=== PATIENT | female | born 1995 | race Caucasian/White ===

== ENCOUNTER 2018-01-23 11:34 | Inpatient (IN) | payer OTHER ==
[2018-01-23 13:23] LABS: ADD MAN DIFF? NO
[2018-01-23 13:27] LABS: WHITE BLOOD COUNT 8.2 10^3/ul (4.8-10.8)
[2018-01-23 13:27] LABS: BASOPHILS % 0.5 % (0.0-2.0); EOSINOPHILS # 0.1 10^3/ul (0.0-0.5); EOSINOPHILS % 0.9 % (0.0-7.0); HEMATOCRIT 36.1 % (37.0-47.0); HEMOGLOBIN 11.8 g/dl (12.0-16.0); LYMPHOCYTES # 1.6 10^3/ul (0.8-2.9); LYMPHOCYTES % 18.9 % (15.0-51.0); MEAN CORPUSCULAR HEMOGLOBIN 27.2 pg (29.0-33.0); MEAN CORPUSCULAR HGB CONC 32.7 g/dl (32.0-37.0); MEAN CORPUSCULAR VOLUME 83.2 fl (82.0-101.0); MEAN PLATELET VOLUME 11.4 fl (7.4-10.4); MONOCYTE # 0.5 10^3/ul (0.3-0.9); MONOCYTES % 6.2 % (0.0-11.0); NEUTROPHILS % 72.8 % (39.0-77.0); PLATELET COUNT 325 10^3/UL (140-415); RED BLOOD COUNT 4.34 10^6/ul (4.20-5.40); RED CELL DISTRIBUTION WIDTH 14.7 % (11.5-14.5)
[2018-01-23 13:43] LABS: ALANINE AMINOTRANSFERASE 32 IU/L (13-69); ALBUMIN 2.9 g/dl (3.3-4.9); ALBUMIN/GLOBULIN RATIO 0.93; ALKALINE PHOSPHATASE 202 IU/L (42-121); ANION GAP 12 (8-16); ASPARTATE AMINO TRANSFERASE 23 IU/L (15-46); BILIRUBIN,INDIRECT 0.2 mg/dl (0-1.1); BILIRUBIN,TOTAL 0.2 mg/dl (0.2-1.3); BLOOD UREA NITROGEN 7 mg/dl (7-20); CARBON DIOXIDE 22 mmol/L (21-31); CHLORIDE 109 mmol/L (97-110); CREATININE 0.45 mg/dl (0.44-1.00); GLUCOSE 83 mg/dl (70-220); POTASSIUM 4.3 mmol/L (3.5-5.1); SODIUM 139 mmol/L (135-144); URIC ACID 5.3 mg/dl (3.1-7.9)
[2018-01-23 13:45] LABS: INR 0.87; PROTIME 11.9 Sec (11.9-14.9); PT RATIO 0.9
[2018-01-23 13:46] LABS: PARTIAL THROMBOPLASTIN TIME 28.3 Sec (25.0-35.0)
[2018-01-23 16:01] LABS: URINE BLOOD (Dip) POC Negative (NEGATIVE); URINE GLUCOSE (Dip) POC Negative (NEGATIVE); URINE KETONES (Dip) POC Negative (NEGATIVE); URINE LEUKOCYTE EST (Dip) POC 2+ (NEGATIVE); URINE NITRITE (Dip) POC Negative (NEGATIVE); URINE TOTAL PROTEIN POC Negative (NEGATIVE)
[2018-01-23 16:32] LABS: ADD UMIC YES; UR ASCORBIC ACID NEGATIVE (NEGATIVE); UR BACTERIA FEW /HPF (NONE SEEN); UR BILIRUBIN (Dip) NEGATIVE (NEGATIVE); UR BLOOD (Dip) NEGATIVE (NEGATIVE); UR CLARITY SLIGHTLY CLOUDY (CLEAR); UR COLOR YELLOW (YELLOW); UR GLUCOSE (Dip) NEGATIVE (NEGATIVE); UR KETONES (Dip) NEGATIVE (NEGATIVE); UR LEUKOCYTE ESTERASE (Dip) 2+ Leu/ul (NEGATIVE); UR NITRITE (Dip) NEGATIVE (NEGATIVE); UR RBC 2 /HPF (0-5); UR SPECIFIC GRAVITY (Dip) 1.017 (1.003-1.030); UR SQUAMOUS EPITHELIAL CELL FEW /HPF (FEW); UR TOTAL PROTEIN (Dip) NEGATIVE (NEGATIVE); UR UROBILINOGEN (Dip) NEGATIVE (NEGATIVE); UR WBC 28 /HPF (0-5)
[2018-01-23] MEDS ORDERED: LIDOCAINE 1% (MPF) 30 ML INJ INJ (17:00)
[2018-01-23] MEDS ORDERED: OXYTOCIN 30 UNITS/LR 500 ML IV (17:00)
[2018-01-23] MEDS ORDERED: OXYCODONE/ASPIRIN (4.88/325) TAB PO (17:00)
[2018-01-23] MEDS ORDERED: CARBOPROST 250 MCG INJ IM (17:00)
[2018-01-23] MEDS ORDERED: IBUPROFEN 600 MG TAB PO (17:00)
[2018-01-23] MEDS ORDERED: METHYLERGONOVINE 0.2 MG INJ IM (17:00)
[2018-01-23] MEDS ORDERED: BUTORPHANOL 2 MG INJ IV (17:00)
[2018-01-23] MEDS ORDERED: AMPICILLIN 2 GM/NS (PMX) 100 ML IV (17:00)
[2018-01-23] MEDS: LACTATED RINGER'S 1,000 ML IV* (20:34)
[2018-01-23] MEDS: METHYLDOPA 500 MG TAB PO (20:34)
[2018-01-23] MEDS ORDERED: AMPICILLIN 1 GM/NS (PMX) 50 ML IV (21:00)
[2018-01-23] MEDS: MISOPROSTOL 50 MCG CAPSULE VAG (22:32)
[2018-01-24] MEDS ORDERED: MISOPROSTOL 50 MCG CAPSULE VAG (01:00)
[2018-01-24] MEDS: MISOPROSTOL 50 MCG CAPSULE VAG ×5 (02:29→22:40)
[2018-01-24] MEDS: LACTATED RINGER'S 1,000 ML IV* ×3 (02:30→19:36)
[2018-01-24] MEDS: METHYLDOPA 500 MG TAB PO ×4 (07:32→21:03)
[2018-01-24 15:16] LABS: RAPID PLASMA REAGIN NONREACTIVE (NR)
[2018-01-25] MEDS: MISOPROSTOL 50 MCG CAPSULE VAG ×5 (01:00→13:00)
[2018-01-25] MEDS: LACTATED RINGER'S 1,000 ML IV* ×4 (03:30→20:02)
[2018-01-25] MEDS: METHYLDOPA 500 MG TAB PO ×2 (09:01→21:03)
[2018-01-25] MEDS: OXYTOCIN 30 UNITS/LR 500 ML IV ×3 (11:10→21:59)
[2018-01-25 13:19] LABS: ADD MAN DIFF? NO
[2018-01-25 13:22] LABS: WHITE BLOOD COUNT 9.4 10^3/ul (4.8-10.8)
[2018-01-25 13:22] LABS: BASOPHILS % 0.2 % (0.0-2.0); EOSINOPHILS % 0.3 % (0.0-7.0); HEMATOCRIT 35.9 % (37.0-47.0); HEMOGLOBIN 11.7 g/dl (12.0-16.0); LYMPHOCYTES # 1.4 10^3/ul (0.8-2.9); LYMPHOCYTES % 14.7 % (15.0-51.0); MEAN CORPUSCULAR HGB CONC 32.6 g/dl (32.0-37.0); MEAN CORPUSCULAR VOLUME 82.9 fl (82.0-101.0); MEAN PLATELET VOLUME 11.5 fl (7.4-10.4); MONOCYTE # 0.5 10^3/ul (0.3-0.9); MONOCYTES % 5.5 % (0.0-11.0); NEUTROPHIL # 7.4 10^3/ul (1.6-7.5); NEUTROPHILS % 78.9 % (39.0-77.0); PLATELET COUNT 305 10^3/UL (140-415); RED BLOOD COUNT 4.33 10^6/ul (4.20-5.40); RED CELL DISTRIBUTION WIDTH 14.8 % (11.5-14.5)
[2018-01-25 13:40] LABS: ALANINE AMINOTRANSFERASE 24 IU/L (13-69); ALBUMIN 2.8 g/dl (3.3-4.9); ALBUMIN/GLOBULIN RATIO 0.82; ALKALINE PHOSPHATASE 222 IU/L (42-121); ANION GAP 10 (8-16); ASPARTATE AMINO TRANSFERASE 23 IU/L (15-46); BILIRUBIN,INDIRECT 0.4 mg/dl (0-1.1); BILIRUBIN,TOTAL 0.4 mg/dl (0.2-1.3); BLOOD UREA NITROGEN 8 mg/dl (7-20); CALCIUM 9.1 mg/dl (8.4-10.2); CARBON DIOXIDE 22 mmol/L (21-31); CHLORIDE 109 mmol/L (97-110); CREATININE 0.47 mg/dl (0.44-1.00); GLUCOSE 85 mg/dl (70-220); POTASSIUM 3.9 mmol/L (3.5-5.1); SODIUM 137 mmol/L (135-144); TOTAL PROTEIN 6.2 g/dl (6.1-8.1); URIC ACID 6.2 mg/dl (3.1-7.9)
[2018-01-25 13:41] LABS: INR 0.86; PARTIAL THROMBOPLASTIN TIME 30.9 Sec (23.0-35.0); PROTIME 11.8 Sec (11.9-14.9); PT RATIO 0.9
[2018-01-25] MEDS ORDERED: ONDANSETRON 4 MG INJ IV ×2 (14:30→23:00)
[2018-01-25] MEDS ORDERED: NALOXONE (0.4 MG/ML) INJ IV (14:30)
[2018-01-25] MEDS ORDERED: KETOROLAC 30 MG INJ IV (14:30)
[2018-01-25] MEDS ORDERED: DIPHENHYDRAMINE 50 MG INJ IV ×2 (14:30→23:00)
[2018-01-25] MEDS ORDERED: HYDROmorphONE 0.5 MG/0.5 ML SYG IV ×2 (14:30)
[2018-01-25 15:11] LABS: URINE BLOOD (Dip) POC Negative (NEGATIVE); URINE GLUCOSE (Dip) POC Negative (NEGATIVE); URINE KETONES (Dip) POC 1+ (NEGATIVE); URINE LEUKOCYTE EST (Dip) POC Negative (NEGATIVE); URINE NITRITE (Dip) POC Negative (NEGATIVE); URINE TOTAL PROTEIN POC 1+ (NEGATIVE)
[2018-01-25 15:11] LABS: URINE PH (Dip) POC 6.5 (5.0-8.5)
[2018-01-25 15:44] LABS: ADD UMIC NO; UR ASCORBIC ACID NEGATIVE (NEGATIVE); UR BILIRUBIN (Dip) NEGATIVE (NEGATIVE); UR BLOOD (Dip) NEGATIVE (NEGATIVE); UR CLARITY CLEAR (CLEAR); UR COLOR AMBER (YELLOW); UR GLUCOSE (Dip) NEGATIVE (NEGATIVE); UR KETONES (Dip) TRACE mg/dL (NEGATIVE); UR LEUKOCYTE ESTERASE (Dip) NEGATIVE Leu/ul (NEGATIVE); UR NITRITE (Dip) NEGATIVE (NEGATIVE); UR SPECIFIC GRAVITY (Dip) 1.023 (1.003-1.030); UR TOTAL PROTEIN (Dip) NEGATIVE (NEGATIVE); UR UROBILINOGEN (Dip) 2+ mg/dL (NEGATIVE)
[2018-01-25] MEDS: FENTAnyl 2MCG/ML-ROPIV 0.2% 100 ML BAG EPI (21:09)
[2018-01-25] MEDS: MISOPROSTOL 200 MCG TAB PR ×2 (21:39→22:14)
[2018-01-25] MEDS: DEXTROSE 5%-LR 1,000 ML IV (22:51)
[2018-01-25] MEDS ORDERED: MISOPROSTOL 200 MCG TAB PR (23:00)
[2018-01-25] MEDS ORDERED: SENNA/DOCUSATE NA (8.6MG/50MG) TAB PO (23:00)
[2018-01-25] MEDS ORDERED: METHYLERGONOVINE 0.2 MG INJ IM (23:00)
[2018-01-25] MEDS ORDERED: ZOLPIDEM 5 MG TAB PO (23:00)
[2018-01-25] MEDS ORDERED: OXYTOCIN 30 UNITS/LR 500 ML IV (23:00)
[2018-01-25] MEDS ORDERED: HYDROCODONE/APAP (5/325) TAB PO (23:00)
[2018-01-25] MEDS ORDERED: ACETAMINOPHEN 325 MG TAB PO (23:00)
[2018-01-25] MEDS ORDERED: DIBUCAINE 1% 30 GM OINT PR (23:00)
[2018-01-25] MEDS ORDERED: MAGNESIUM SULFATE 4 GM/100 ML 100 ML (23:28)
[2018-01-25] MEDS: MAGNESIUM SULFATE 4 GM/100 ML 100 ML IVPB (23:30)
[2018-01-26] MEDS ORDERED: LABETALOL HCL 20MG INJ IV (00:30)
[2018-01-26] MEDS: MAGNESIUM SULFATE 20 GM/500 ML 500 ML IV ×3 (00:45→21:24)
[2018-01-26 01:00] LABS: ADD MAN DIFF? NO
[2018-01-26 01:08] LABS: WHITE BLOOD COUNT 13.5 10^3/ul (4.8-10.8)
[2018-01-26 01:08] LABS: BASOPHILS % 0.3 % (0.0-2.0); HEMATOCRIT 35.5 % (37.0-47.0); HEMOGLOBIN 11.7 g/dl (12.0-16.0); LYMPHOCYTES # 1.2 10^3/ul (0.8-2.9); MEAN CORPUSCULAR HEMOGLOBIN 27.5 pg (29.0-33.0); MEAN CORPUSCULAR VOLUME 83.5 fl (82.0-101.0); MEAN PLATELET VOLUME 11.9 fl (7.4-10.4); MONOCYTE # 0.8 10^3/ul (0.3-0.9); MONOCYTES % 5.6 % (0.0-11.0); NEUTROPHIL # 11.4 10^3/ul (1.6-7.5); NEUTROPHILS % 84.6 % (39.0-77.0); PLATELET COUNT 297 10^3/UL (140-415); RED BLOOD COUNT 4.25 10^6/ul (4.20-5.40); RED CELL DISTRIBUTION WIDTH 14.7 % (11.5-14.5)
[2018-01-26 01:23] LABS: ADD UMIC YES; UR ASCORBIC ACID NEGATIVE (NEGATIVE); UR BILIRUBIN (Dip) NEGATIVE (NEGATIVE); UR BLOOD (Dip) 3+ mg/dL (NEGATIVE); UR CLARITY CLEAR (CLEAR); UR COLOR YELLOW (YELLOW); UR GLUCOSE (Dip) NEGATIVE (NEGATIVE); UR KETONES (Dip) 1+ mg/dL (NEGATIVE); UR LEUKOCYTE ESTERASE (Dip) NEGATIVE Leu/ul (NEGATIVE); UR NITRITE (Dip) NEGATIVE (NEGATIVE); UR RBC > 182 /HPF (0-5); UR TOTAL PROTEIN (Dip) 1+ mg/dl (NEGATIVE); UR UROBILINOGEN (Dip) 2+ mg/dL (NEGATIVE); UR WBC 10 /HPF (0-5)
[2018-01-26 01:28] LABS: INR 0.94; PROTIME 12.7 Sec (11.9-14.9)
[2018-01-26 01:29] LABS: PARTIAL THROMBOPLASTIN TIME 30.3 Sec (23.0-35.0)
[2018-01-26 01:31] LABS: ALANINE AMINOTRANSFERASE 31 IU/L (13-69); ALBUMIN 2.5 g/dl (3.3-4.9); ALKALINE PHOSPHATASE 213 IU/L (42-121); ANION GAP 11 (8-16); ASPARTATE AMINO TRANSFERASE 33 IU/L (15-46); BILIRUBIN,INDIRECT 0.5 mg/dl (0-1.1); BILIRUBIN,TOTAL 0.5 mg/dl (0.2-1.3); BLOOD UREA NITROGEN 9 mg/dl (7-20); CALCIUM 8.9 mg/dl (8.4-10.2); CARBON DIOXIDE 21 mmol/L (21-31); CHLORIDE 106 mmol/L (97-110); CREATININE 0.61 mg/dl (0.44-1.00); GLUCOSE 91 mg/dl (70-220); POTASSIUM 3.3 mmol/L (3.5-5.1); SODIUM 135 mmol/L (135-144); TOTAL PROTEIN 5.6 g/dl (6.1-8.1); URIC ACID 7.1 mg/dl (3.1-7.9)
[2018-01-26] MEDS: CARBOPROST 250 MCG INJ IM (02:04)
[2018-01-26] MEDS: WITCH HAZEL/GLYCERIN PAD PR (02:15)
[2018-01-26] MEDS: DIPHENOXYLATE/ATROPINE TAB PO (02:15)
[2018-01-26] MEDS: BENZOCAINE 20% 56 ML SPRAY TOP (02:16)
[2018-01-26] MEDS: LANOLIN 7 GM TUBE TOP (02:16)
[2018-01-26] MEDS: LACTATED RINGER'S 1,000 ML IV* ×4 (02:18→15:57)
[2018-01-26] MEDS: IBUPROFEN 600 MG TAB PO ×5 (05:41→23:51)
[2018-01-26] MEDS: DEXTROSE 5%-LR 1,000 ML IV ×3 (06:51→14:51)
[2018-01-26] MEDS: METHYLDOPA 500 MG TAB PO ×2 (08:54→20:31)
[2018-01-26 09:27] LABS: ADD MAN DIFF? NO
[2018-01-26 09:31] LABS: WHITE BLOOD COUNT 10.9 10^3/ul (4.8-10.8)
[2018-01-26 09:31] LABS: BASOPHILS % 0.3 % (0.0-2.0); EOSINOPHILS % 0.3 % (0.0-7.0); HEMATOCRIT 32.9 % (37.0-47.0); HEMOGLOBIN 10.6 g/dl (12.0-16.0); LYMPHOCYTES # 1.4 10^3/ul (0.8-2.9); LYMPHOCYTES % 12.5 % (15.0-51.0); MEAN CORPUSCULAR HEMOGLOBIN 27.2 pg (29.0-33.0); MEAN CORPUSCULAR HGB CONC 32.2 g/dl (32.0-37.0); MEAN CORPUSCULAR VOLUME 84.6 fl (82.0-101.0); MONOCYTE # 0.5 10^3/ul (0.3-0.9); MONOCYTES % 4.7 % (0.0-11.0); NEUTROPHIL # 8.9 10^3/ul (1.6-7.5); NEUTROPHILS % 81.7 % (39.0-77.0); PLATELET COUNT 248 10^3/UL (140-415); RED BLOOD COUNT 3.89 10^6/ul (4.20-5.40)
[2018-01-26 09:53] LABS: MAGNESIUM 4.5 mg/dl (1.7-2.5)
[2018-01-26 13:29] LABS: MAGNESIUM 4.8 mg/dl (1.7-2.5)
[2018-01-26 13:50] LABS: HEPATITIS B SURFACE ANTIGEN NEGATIVE (NEGATIVE)
[2018-01-26 18:44] LABS: MAGNESIUM 5.1 mg/dl (1.7-2.5)
[2018-01-27] MEDS: IBUPROFEN 600 MG TAB PO ×2 (05:45→12:00)
[2018-01-27] MEDS: LACTATED RINGER'S 1,000 ML IV* (06:51)
[2018-01-27] MEDS: DEXTROSE 5%-LR 1,000 ML IV ×2 (09:00→13:02)
[2018-01-27] MEDS: DIPHTH/TET/ACEL PERTUSS (ADULT) 0.5 ML VIAL IM* (09:00)
[2018-01-27] MEDS: METHYLDOPA 500 MG TAB PO (09:43)
[2018-01-27] MEDS: MEASLES,MUMPS,RUBELLA VACCINE INJ SC* (09:48)
== END 2018-01-27 15:00 | disposition home or self-care (01) | DRG 775 ==
LOC: OBT 11:34 → PP1 01-26 01:04 → L-D 11:34 → OBT 16:39 → L-D 16:39
PROVIDERS: Obstetrics & Gynecology
PROC: 3E0P7VZ Introduction of Hormone into Female Reproductive, Via Natural or Artificial Opening (ICD-10-PCS; 2018-01-23)
PROC: 10E0XZZ Delivery of Products of Conception, External Approach (ICD-10-PCS; principal; 2018-01-25)
PROC: 0KQM0ZZ Repair Perineum Muscle, Open Approach (ICD-10-PCS; 2018-01-25)
PROC: 0UQMXZZ Repair Vulva, External Approach (ICD-10-PCS; 2018-01-25)
DX: O13.4 Gestational [pregnancy-induced] hypertension without significant proteinuria, complicating childbirth (principal); Z68.41 Body mass index [BMI] 40.0-44.9, adult; O14.14 Severe pre-eclampsia complicating childbirth; O99.214 Obesity complicating childbirth; E66.9 Obesity, unspecified; O70.1 Second degree perineal laceration during delivery; O90.81 Anemia of the puerperium; Z3A.38 38 weeks gestation of pregnancy; Z37.0 Single live birth
CPT/HCPCS: 62319; 76815; 76818; 80053; 81001; 81003; 83735; 84560; 85025; 85384; 85610; 85730; 86592; 86850; 86900; 86901; 87340